=== PATIENT | male | born 1965 | race Caucasian/White ===

== ENCOUNTER → 2019-11-27 08:09 | Outpatient (CLI) | payer OTHER | END | disposition home or self-care (01) | LOC: D.MRI 11-25 11:00 | PROVIDERS: ATTEND Clinical Nurse Specialist Family Health | DX: M25.552 Pain in left hip (principal) ==

== ENCOUNTER → 2020-03-20 17:44 | Outpatient (CLI) | payer OTHER | END | disposition home or self-care (01) | LOC: D.LABREF 17:44 | PROVIDERS: ATTEND Podiatrist | DX: L97.519 Non-pressure chronic ulcer of other part of right foot with unspecified severity (principal) ==

== ENCOUNTER → 2020-06-15 14:00 | Outpatient (CLI) | payer OTHER | END | disposition home or self-care (01) | LOC: D.MRI 14:00 | PROVIDERS: ATTEND Clinical Nurse Specialist Family Health | DX: M25.512 Pain in left shoulder (principal) ==

== ENCOUNTER 2020-07-20 05:35 | Day surgery (SDC) | payer OTHER ==
[2020-07-16 10:08] LABS: HEMATOCRIT 44.6 % (42.0-54.0); HEMOGLOBIN 14.4 g/dL (13.5-17.5); MCH 30.3 pg (26.0-34.0); MCHC 32.3 g/dL (31.0-37.0); MCV 93.9 fL (80.0-100.0); MEAN PLATELET VOLUME 10.8 fL (7.4-10.4); RBC 4.75 10x6/uL (4.20-6.10); RDW 13.2 % (11.5-14.5); WBC 6.6 10x3/uL (4.8-10.8)
[~2020-07-20] VITALS: Ht 185.4 cm; Wt 83.2 kg
[2020-07-20] VITALS (15 sets, daily range): BP systolic 94–146; BP diastolic 41–94; Ht 185.4 cm; Wt 83.2 kg
[~2020-07-20 05:35] MED LIST: CRESTOR10 MG PO; CYMBALTA30 MG PO; MULTI-DAY VITAM1 TAB PO; POTASSIUM99 M1 PO; QUNOL PO; SYNTHROID137 MCG PO; VITAMIN B-121000 MCG PO
--- NOTE | 2020-07-20 07:38 | NUR ---
0730 RECEIVED REPORT FROM CORWIN JO, STUDENT NA, THAT BLOCK IS COMPLETED.
[2020-07-20] MEDS ORDERED: PERCOCET 10-321 EAC1 PO (08:49)
--- NOTE | 2020-07-20 09:50 | NUR ---
RECEIVED TO ROOM 1211 VIA STRETCHER FROM PACU. A/O X3. DRESSING TO LEFT SHOULDER DRY AND INTACT. MOVES DIGITS FREELY BUT NO FEELING AT THIS TIME. WILL MONITOR. REQUESTED MADRIGAL AT THIS TIME. DEINIES PAIN.
--- NOTE | 2020-07-20 11:30 | NUR ---
14F MADRIGAL PLACED USING STERILE TECHNIQUE WITHOUT DIFFICULTY. CLEAR YELLOW URINE RETURNED. DENIES FURTHER NEEDS.
--- NOTE | 2020-07-20 12:07 | NUR ---
LUNCH SERVED IN ROOM. DENIES NEEDS. NO C/O PAIN AT THIS TIME.
--- NOTE | 2020-07-20 18:37 | NUR ---
ATE ALL OF SUPPER. DENIES NEEDS. NO CHANGES NOTED.
--- NOTE | 2020-07-20 19:22 | NUR ---
PATIENT RESTING IN BED WITH NO S/S OF DISTRESS. BROUGHT PATIENT WATER PER HIS REQUEST AND EMPTIED 1000ML FROM CATH BAG. PATIENT DENIES OTHER NEEDS AT THIS TIME. BED IN LOWEST POSITION AND CALL LIGHT WITHIN REACH. ENCOURAGED THE PATIENT TO CALL IF HE HAS OTHER NEEDS. WILL CONTINUE TO MONITOR.
--- NOTE | 2020-07-20 22:09 | NUR ---
ADMINISTERED MEDS PER ORDERS. PATIENT DENIES OTHER NEEDS. WILL CONTINUE TO MONITOR.
[2020-07-21 00:18] VITALS: BP 124/68
[2020-07-21 05:23] LABS: HEMATOCRIT 35.7 % (42.0-54.0); HEMOGLOBIN 11.6 g/dL (13.5-17.5); MCH 30.3 pg (26.0-34.0); MCHC 32.5 g/dL (31.0-37.0); MCV 93.2 fL (80.0-100.0); RBC 3.83 10x6/uL (4.20-6.10); RDW 12.9 % (11.5-14.5); WBC 12.4 10x3/uL (4.8-10.8)
[2020-07-21 07:35] VITALS: BP 133/79
--- NOTE | 2020-07-21 07:51 | NUR ---
BREAKFAST SERVED IN ROOM. FEEDS SELF. DENIES NEEDS. AWAKE AND ALERT. ORIENTED X3. NO C/O AT THIS TIME. LUNGS ARE CLEAR BILATERALLY, NO COUGH NOTED. REPORTED USED IS INSTRUCTED. IV TO RIGHT HAND PATENT WITHOUT REDNESS AT INSERTION SITE. MADRIGAL PATENT WITH CLEAR YELLOW URINE.
--- NOTE | 2020-07-21 08:11 | NUR ---
REQUESTED AND GIVEN ONE PERCOCET PO FOR C/O LEFT SHOULDER PAIN AND BACK PAIN LEVEL 6. WILL MONITOR.
--- NOTE | 2020-07-21 10:45 | NUR ---
DISCHARGED TO HOME AMBULATORY. DISCHARGE INSTRUCTIONS GIVEN BOTH VERBALLY AND WRITTEN. ALL QUESTIONS ANSWERED. IV TO RIGHT HAND D/C WITH CATHETER INTACT. PATIENT VERBALIZED UNDERSTANDING OF SAME. ALL BELONGINGS WITH PATIENT.
--- NOTE | 2020-07-21 16:07 | OP ---
PATIENT NAME: TREV DEL RIO MEDICAL RECORD: [id number] :65 LOCATION:D.OPS ADMISSION DATE: SURGEON: CHON PUENTES MD DATE OF OPERATION: 07/20/2020 PREOPERATIVE DIAGNOSIS: Subscapularis tear with impingement syndrome. POSTOPERATIVE DIAGNOSES: Subscapularis tear with impingement syndrome plus biceps tendinitis. PROCEDURES: 1. Open subscapularis repair. 2. Open biceps tenotomy. 3. Arthroscopic subacromial decompression with shoulder arthroscopy, all of the left shoulder. SURGEON: Chon Puentes MD HYDROLOGY PROFESSOR: NILA Lozano INTRAOPERATIVE COMPLICATIONS: None. SUMMARY OF PATHOLOGIC FINDINGS: The patient was indeed found to have a subscapularis rupture with subluxation of the biceps tendon with severe biceps tendinitis as well as impingement syndrome. OPERATIVE SUMMARY IN DETAIL: After obtaining the appropriate preoperative orthopedic surgery consent as well as anesthetic consultation, evaluation, and clearance, the patient was brought to the operating room and placed on the operating table in the supine position. After adequate general laryngeal mask airway was administered, the patient was placed in beach chair position. All pressure points were well padded. He was held firmly to the operating table using the Vac-Pac suction system. Left upper extremity and shoulder were then prepped and draped in routine sterile fashion. The arm was held in Trimano arm holding device. Appropriate timeout was taken and agreed upon by all given the patient's unique identifiers. Arthroscopy was established in the glenohumeral joint from a posterior portal. Diagnostic arthroscopy showed mild labral tearing which was gently debrided along with biceps tendinitis, which was safe for tenotomy with the open subscap repair. Arthroscopic subacromial decompression was then performed. After the excoriated coracoacromial ligament was taken down, the acromion was taken from a type 3 to a type 1. Having completed this, attention was turned to the open part of the case. Deltopectoral incision was made, taken down to the level of clavipectoral fascia. Cephalic vein was identified and protected to the entire case. Brown retractor was utilized to retract the deltoid laterally and then the conjoined tendon was retracted gently medially. The subscapularis tear was noted. It did not retract beyond the repair. Upon taking it down, the biceps tendon was noted to be severely stenotic with an obvious subluxation and a very robust lesser tuberosity. After the subscapularis was taken down and prepared for repair, lesser tuberosity tuberoplasty was performed and the biceps tendon was cut and tagged for later reapproximation. The proximal end was then removed with the arthroscopic resector. Having completed this and completing the tenotomy, double-row SpeedBridge was utilized that of Arthrex with the 2 medial sides being just at the junction of the cartilage footprint interface. The footprint was taken down both medially and laterally for good bleeding bone after the OPERATIVE REPORT [id number] TREV DEL RIO tuberoplasty was performed. The 2 tails of the medial row were then passed and then the superolateral ankle was placed in the lateral aspect of the lesser tuberosity while the superomedial ankle was placed into the bicipital groove to incorporate the biceps tenotomy. After crisscross and anchoring with a lateral row, the residual tails from the lower ankle were used to perform a tenotomy at the appropriate tension. Having completed this, the inferior and superior ends of the subscapularis were reapproximated to complete the complete rotator cuff repair. Finally, the wound was irrigated and closed with #1 Vicryl, 2-0 Vicryl, and skin harmony. Sterile dressings were applied. This was done by NILA Sarmiento, and with the assistance of another FAS. Sterile dressings were applied. A sling with an abduction pillow was applied. The patient was awakened and taken to the recovery room in stable condition. All final needle and sponge counts were correct. 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
== END 2020-07-21 10:51 | disposition home or self-care (01) ==
LOC: D.OPS 05:35 → D.M3 09:40 → D.OPS 11:00 → D.PAN 11:00 → D.OPS 07-21 10:51
PROVIDERS: Anesthesiology; ATTEND Orthopaedic Surgery
DX: M75.102 Unspecified rotator cuff tear or rupture of left shoulder, not specified as traumatic (principal); M75.42 Impingement syndrome of left shoulder; M75.22 Bicipital tendinitis, left shoulder; E03.9 Hypothyroidism, unspecified

== ENCOUNTER 2020-08-13 07:20 | Emergency (ER) | payer OTHER ==
[~2020-08-13] VITALS: Ht 185.4 cm; Wt 85.9 kg
[~2020-08-13 07:20] MED LIST changes: +PERCOCET 10-321 EAC1 PO
[2020-08-13 07:33] VITALS: Ht 185.4 cm; Wt 85.9 kg
[2020-08-13] MEDS ORDERED: DILAUDID4 MG PO (08:15)
[2020-08-13 08:57] VITALS: BP 161/84
== END 2020-08-13 08:57 | disposition home or self-care (01) ==
LOC: D.ER 07:20
DX: M25.512 Pain in left shoulder (principal); M75.102 Unspecified rotator cuff tear or rupture of left shoulder, not specified as traumatic

== ENCOUNTER → 2020-08-19 07:27 | Outpatient (CLI) | payer OTHER ==
[2020-08-13 07:33] VITALS: BMI 24.9
[~2020-08-19 07:27] MED LIST changes: +DILAUDID4 MG PO
== END | disposition home or self-care (01) ==
LOC: D.MRI 07:27
PROVIDERS: ATTEND Clinical Nurse Specialist Family Health
DX: M25.512 Pain in left shoulder (principal)